=== PATIENT | male | born 1985 | race Caucasian/White ===

== ENCOUNTER 2016-12-21 19:06 | Emergency (ER) | payer OTHER, MEDICAID ==
[~2016-12-21] VITALS: Ht 188 cm; Wt 77.1 kg
[2016-12-21 19:09] VITALS: BP 115/70
[2016-12-21] MEDS ORDERED: ACETAMINOPHEN ES 500 MG TABLET ONE (19:37)
[2016-12-21] MEDS ORDERED: IBUPROFEN 600 MG TABLET PO ONE ×2 (19:37→20:00)
--- NOTE | 2016-12-21 19:42 | NUR ---
PT MEDICATED ORDERED.
[2016-12-21] MEDS ORDERED: ACETAMINOPHEN ES 500 MG TABLET PO ONE (20:00)
== END 2016-12-21 21:08 | disposition home or self-care (01) ==
LOC: ER 19:07
DX: S20.211A Contusion of right front wall of thorax, initial encounter (principal); B19.20 Unspecified viral hepatitis C without hepatic coma; F11.10 Opioid abuse, uncomplicated; R73.03 Prediabetes; Z59.0 Homelessness; X58.XXXA Exposure to other specified factors, initial encounter; Y93.89 Activity, other specified; Y92.89 Other specified places as the place of occurrence of the external cause; Y99.8 Other external cause status
CPT/HCPCS: 71111; 99284; A4606; Z7610

== ENCOUNTER 2017-08-14 09:59 | Emergency (ER) | payer MEDICAID, OTHER ==
[~2017-08-14] VITALS: Ht 188 cm; Wt 90.7 kg
[2017-08-14 09:59] VITALS: BP 108/75
== END 2017-08-14 10:11 ==
LOC: ER 10:03
DX: F11.23 Opioid dependence with withdrawal (principal); B19.20 Unspecified viral hepatitis C without hepatic coma; F10.10 Alcohol abuse, uncomplicated; Z60.2 Problems related to living alone
CPT/HCPCS: 99283; A4606; Z7610

== ENCOUNTER 2017-09-11 09:26 | Emergency (ER) | payer MEDICAID, OTHER ==
[~2017-09-11] VITALS: Ht 182.9 cm; Wt 83.9 kg
[2017-09-11 09:35] VITALS: BP 126/85
[2017-09-11] MEDS ORDERED: ONDANSETRON 4 MG TAB.RAPDIS PO ONE (10:00)
[2017-09-11] MEDS ORDERED: ONDANSETRON 4 MG TAB.RAPDIS ONE (10:13)
[2017-09-11 10:17] LABS: BASOPHILS # (AUTO) 0.4 /CMM (0.0-0.2); BASOPHILS % (AUTO) 2.9 % (0.0-2.0); EOSINOPHILS % (AUTO) 1.3 % (0.0-6.0); HEMATOCRIT 42 % (39-51); HEMOGLOBIN 14.1 g/dL (13.5-17.5); LYMPHOCYTES # (AUTO) 1.1 /CMM (0.8-4.8); LYMPHOCYTES % (AUTO) 7.5 % (20.0-44.0); MEAN CORPUSCULAR HGB CONC 34 g/dl (31.0-36.0); MEAN CORPUSCULAR VOLUME 84 fL (80-96); MONOCYTES # (AUTO) 0.3 /CMM (0.1-1.30); MONOCYTES % (AUTO) 2.3 % (2.0-12.0); NEUTROPHILS # (AUTO) 12.9 /CMM (1.8-8.9); PLATELET COUNT (AUTO) 400 /CMM (150-450); RDW COEFFICIENT OF VARIATION 14.5 (11.5-15.0); RED BLOOD CELL COUNT(AUTO) 4.99 MIL/uL (4.5-6.0); WHITE BLOOD COUNT (AUTO) 14.9 K/uL (4.3-11.0)
[2017-09-11 10:21] LABS: CALCIUM, SERUM 9.6 mg/dL (8.5-10.1); CREATININE 0.9 mg/dL (0.6-1.3); POTASSIUM 4.1 mmol/L (3.5-5.1)
--- NOTE | 2017-09-11 10:50 | NUR ---
OK TO BOOK. [employer] UNIT #[id number] OFFICER EDGARDO
== END 2017-09-11 10:51 ==
LOC: ER 09:29
DX: F11.23 Opioid dependence with withdrawal (principal); D72.829 Elevated white blood cell count, unspecified; F10.10 Alcohol abuse, uncomplicated; F17.200 Nicotine dependence, unspecified, uncomplicated; Z86.19 Personal history of other infectious and parasitic diseases
CPT/HCPCS: 36415; 80048-TC; 85025-TC; A4606; Q0162; Z7610

== ENCOUNTER 2017-09-15 21:52 | Emergency (ER) | payer MEDICAID ==
[~2017-09-15] VITALS: Ht 188 cm; Wt 79.4 kg
--- NOTE | 2017-09-15 22:00 | NUR ---
PT BB SELF FROM STREETS C/O OF ABSCESS ON HIS R GLUTEAL AND R KNEE AREA. REDNESS AND SWELLING NOTED OF THE R GLUTEAL AND R KNEE. PT IS AAOX4. PT STATES HE DOES USE IV DRUGS. MULTIPLE SCARS NOTED OF THE EXTREMITIES, PER PT ITS D/T IV DRUG USE. PT RESP EVEN AND UNLABORED. NO S/S OF ACUTE DISTRESS NOTED. PT PLACED ON MONITOR AND POX. AWAITING MD FOR EVAL.
[2017-09-15] MEDS ORDERED: CEFTRIAXONE 1 G VIAL ONE (22:39)
[2017-09-15] MEDS ORDERED: PIPERACILLIN /TAZOBACTAM 3.375 G VIAL IV ONE (22:40)
[2017-09-15] MEDS ORDERED: KETOROLAC TROMETHAMINE INJ 30 MG/ML VIAL ONE (22:40)
[2017-09-15] MEDS ORDERED: VANCOMYCIN 1 GM VIAL ONE (22:42)
[2017-09-15] MEDS ORDERED: IV NS 0.9% 500 ML BAG IV ONE (23:00)
[2017-09-15] MEDS ORDERED: PIPERACILLIN /TAZOBACTAM 3.375 G in IV D5W 50 ML IV ONE (23:00)
[2017-09-15] MEDS ORDERED: KETOROLAC TROMETHAMINE INJ 30 MG/ML VIAL IV ONE (23:00)
[2017-09-15] MEDS ORDERED: IV NS 0.9% 1,000 ML IV ONE ×2 (23:00)
[2017-09-15] MEDS ORDERED: VANCOMYCIN 1 GM in IV D5W 250 ML IV ONE (23:00)
--- NOTE | 2017-09-15 23:41 | NUR ---
PT ASSIGNED TO MED/SURG RM# [id number]
[2017-09-15 23:50] LABS: BASOPHILS % (AUTO) 0.3 % (0.0-2.0); EOSINOPHILS % (AUTO) 0.3 % (0.0-6.0); HEMATOCRIT 33 % (39-51); HEMOGLOBIN 11.4 g/dL (13.5-17.5); LYMPHOCYTES # (AUTO) 1.1 /CMM (0.8-4.8); LYMPHOCYTES % (AUTO) 6.6 % (20.0-44.0); MEAN CORPUSCULAR HGB CONC 35 g/dl (31.0-36.0); MEAN CORPUSCULAR VOLUME 85 fL (80-96); MONOCYTES % (AUTO) 5.8 % (2.0-12.0); NEUTROPHILS # (AUTO) 14.5 /CMM (1.8-8.9); PLATELET COUNT (AUTO) 300 /CMM (150-450); RED BLOOD CELL COUNT(AUTO) 3.88 MIL/uL (4.5-6.0); WHITE BLOOD COUNT (AUTO) 16.6 K/uL (4.3-11.0)
[2017-09-16 00:02] LABS: INR 1.03 (0.87-1.13)
[2017-09-16 00:03] LABS: CALCIUM, SERUM 8.5 mg/dL (8.5-10.1); CREATININE 0.8 mg/dL (0.6-1.3); POTASSIUM 4.2 mmol/L (3.5-5.1)
[2017-09-16] MEDS ORDERED: IV NS 0.9% 1,000 ML IV PRN (00:07)
--- NOTE | 2017-09-16 00:28 | NUR ---
PT REFUSED ALL MEDICATIONS ORDERED BY MD. PT STATES HE WANTS TO GO AMA. MD MADE AWARE.
[2017-09-16] MEDS ORDERED: ACETAMINOPHEN 325 MG TABLET PO PRN (00:30)
[2017-09-16] MEDS ORDERED: MORPHINE SULFATE INJ 2 MG/ML DISP.SYRIN IV PRN (00:30)
[2017-09-16] MEDS ORDERED: CEPHALEXIN MONOHYDRATE 250 MG CAPSULE PO ONE (00:30)
[2017-09-16] MEDS ORDERED: SULFAMETH/TRIMETH 800/160 MG 1 UDTAB TABLET PO ONE ×2 (00:30→00:45)
[2017-09-16] MEDS ORDERED: ONDANSETRON HCL/PF 4 MG/2 ML VIAL IVP PRN (00:30)
[2017-09-16] MEDS ORDERED: ACETAMINOPHEN 325 MG TABLET PO ONE (00:30)
[2017-09-16] MEDS ORDERED: MAGNESIUM HYDROXIDE 30 ML UDC PO PRN (00:30)
[2017-09-16] MEDS ORDERED: ZOLPIDEM TARTRATE 5 MG TABLET PO PRN (00:30)
[2017-09-16] MEDS ORDERED: Z GUARD REMEDY 2 OZ OINT TP PRN (00:30)
--- NOTE | 2017-09-16 00:31 | NUR ---
Patient does not wish to proceed with medical care recommended by PRE[facility] HUSAIN. Patient given information related to possible complications, up to and including , which could occur as a result of leaving the hospital at this time. Patient verbalizes understanding of risks involved due to leaving against medical advice. Patient has signed AMA form. PT states "I may be back in the morning". Pt states he does not wish to continue with establishing an IV access. Pt states "I will try coming back later tomorrow morning". VSS.
[2017-09-16 00:37] VITALS: BP 137/69
[2017-09-16] MEDS ORDERED: CEPHALEXIN MONOHYDRATE 500 MG CAPSULE PO ONE (00:44)
[2017-09-16] MEDS ORDERED: ACETAMINOPHEN 325 MG TABLET ONE (00:45)
[2017-09-16] MEDS ORDERED: PIPERACILLIN /TAZOBACTAM 3.375 G in IV D5W 50 ML IV SCH ×3 (06:00)
== END 2017-09-16 00:39 | disposition left against medical advice (07) ==
LOC: ER 21:52 → UNDOADMIN 23:47 → MED 23:47
DX: L03.317 Cellulitis of buttock (principal); L02.31 Cutaneous abscess of buttock; F19.10 Other psychoactive substance abuse, uncomplicated; F10.10 Alcohol abuse, uncomplicated; F17.200 Nicotine dependence, unspecified, uncomplicated; R79.1 Abnormal coagulation profile; Z53.20 Procedure and treatment not carried out because of patient's decision for unspecified reasons; Z60.2 Problems related to living alone; Z86.19 Personal history of other infectious and parasitic diseases
CPT/HCPCS: 36415; 80048; 83605; 85025; 85730; 87040 ×2; 87081; 99284; A4606; J7030; J7040; Z7610; J0696; J1885; J2543; J3370; J7060

== ENCOUNTER 2018-07-12 16:13 | Emergency (ER) | payer OTHER, MEDICAID ==
[~2018-07-12] VITALS: Ht 195.6 cm; Wt 78.9 kg
[2018-07-12 16:13] VITALS: BP 120/70
[2018-07-12] MEDS ORDERED: CEPHALEXIN MONOHYDRATE 500 MG CAPSULE PO ONE ×2 (16:47→17:00)
[2018-07-12] MEDS ORDERED: ACETAMINOPHEN ES 500 MG TABLET ONE (16:47)
[2018-07-12] MEDS ORDERED: IBUPROFEN 400 MG TABLET ONE (16:48)
[2018-07-12] MEDS ORDERED: SULFAMETH/TRIMETH 800/160 MG 1 UDTAB TABLET PO ONE ×2 (16:48→17:00)
[2018-07-12] MEDS ORDERED: ACETAMINOPHEN ES 500 MG TABLET PO ONE (17:00)
[2018-07-12] MEDS ORDERED: IBUPROFEN 400 MG TABLET PO ONE (17:00)
== END 2018-07-12 17:56 ==
LOC: ER 16:15
DX: L03.317 Cellulitis of buttock (principal); F17.200 Nicotine dependence, unspecified, uncomplicated; Z86.19 Personal history of other infectious and parasitic diseases; Z60.2 Problems related to living alone